=== PATIENT | female | born 1965 | race Caucasian/White ===

== ENCOUNTER → 2017-10-19 | Outpatient (CLI) | payer OTHER | LOC: FIMAGING 11:21 | PROVIDERS: ATTEND Internal Medicine | DX: Z12.31 Encounter for screening mammogram for malignant neoplasm of breast (principal) ==

== ENCOUNTER 2018-09-08 09:59 | Emergency (ER) | payer OTHER ==
[2018-09-08 10:42] LABS: PLATELET COUNT 339 10^3/uL (150-400)
--- NOTE | 2018-09-08 11:09 | EDPHY ---
H & P Stated Complaint: CP/tightness Time Seen by Provider: 09/08/18 10:38 HPI/ROS: CHIEF COMPLAINT: Rapid heart rate HISTORY OF PRESENT ILLNESS: 53-year-old female presents with tachycardia. Onset of intermittent episodes of tachycardia 2 nights ago. These episodes awake her from sleep and consist of isolated tachycardia without associated symptoms. The symptoms usually last a few minutes and then completely resolve. This morning she had a brief episode of tachycardia, which prompted her visit. She also has a few month history of intermittent vague and mild chest discomfort extending from her epigastrium up into her chest. The pain tends to run up and down her chest and is not associated with exertion. No assoc sx and no known association with dietary intake. Cardiac risk factors negative. Nonsmoker; no family history; no hypertension, diabetes or hypercholesterolemia. REVIEW OF SYSTEMS: complete 10 point ROS reviewed and is negative except for the noted elements in the HPI - Personal History LMP (Females 10-55): Irregular Current Tetanus/Diphtheria Vaccine: Yes - Medical/Surgical History Hx Asthma: No Hx Chronic Respiratory Disease: No Hx Diabetes: No Hx Cardiac Disease: No Hx Renal Disease: No Hx Cirrhosis: No Hx Alcoholism: No Other PMH: Denies - Family History Significant Family History: Other (VTE in father and brother) - Social History Smoking Status: Never smoked Alcohol Use: Occasionally Drug Use: None Additional Social History: - Physical Exam Exam: General Appearance: Alert, pleasant Eyes: Pupils equal and round, no conjunctival pallor or injection ENT, Mouth: Mucous membranes moist Neck: Normal inspection Respiratory: Lungs are clear to auscultation Cardiovascular: Regular rate and rhythm, no murmur Gastrointestinal: Abdomen is soft and nontender Neurological: A&O, nonfocal, normal gait Skin: Warm and dry, no rash Extremities: Nontender, no pedal edema Psychiatric: Mood and affect normal Constitutional: Initial Vital Signs Temperature (C) 36.6 C 09/08/18 10:10 Heart Rate 75 09/08/18 10:10 Respiratory Rate 18 09/08/18 10:10 Blood Pressure 145/80 H 09/08/18 10:10 O2 Sat (%) 100 09/08/18 10:10 O2 Delivery Mode Room Air Allergies/Adverse Reactions: Penicillins Allergy (Verified 09/08/18 10:12) Home Medications: Medication Instructions Recorded NK [No Known Home Meds] 09/08/18 Medical Decision Making - Diagnostics EKG Interpretation: EKG interpreted by me reveals normal sinus rhythm, rate 69, no ST or T segment changes. Interpretation: Normal EKG Imaging Results: Imaging Impressions Chest X-Ray 09/08/18 10:20 Impression: No acute pulmonary disease. Chest x-ray: NAD Imaging: I viewed and interpreted images myself ED Course/Re-evaluation: This pt presents with palpitations. stat EKG reveals no evidence of ischemia or dysrhythmia. youth nutritional monitor: NSR throughout ED obs. Labs unremarkable, TSH pending. Will need outpt Holter for further eval of palpitations. Chest discomfort most c/w GERD, doubt ACS given atypical sx and no RF. No indication for further ED eval. Safe/stable for d/c home. Will f/u PCP, consider cardiac monitoring as outpt. Warning signs discussed. Differential Diagnosis: includes though not limited to SVT, AFib, ventricular dysrhythmia, thyrotoxicosis, ACS - Data Points Laboratory Results: Laboratory Results 09/08/18 10:25 09/08/18 10:25 09/08/18 09/08/18 09/08/18 10:30 10:28 10:25 WBC RBC Hgb Hct MCV MCH MCHC RDW Plt Count MPV Neut % (Auto) Lymph % (Auto) Hyde % (Auto) Eos % (Auto) Baso % (Auto) Nucleat RBC Rel Count Absolute Neuts (auto) Absolute Lymphs (auto) Absolute Monos (auto) Absolute Eos (auto) Absolute Basos (auto) Absolute Nucleated RBC Immature Gran % Immature Gran # D-Dimer < 0.27 ug/mLFEU ug/mLFEU (0.00-0.50) Sodium Potassium Chloride Carbon Dioxide Anion Gap BUN Creatinine Estimated GFR Glucose Calcium POC Troponin I 0.00 ng/mL ng/mL (0.00-0.08) NT-Pro-B Natriuret Pep TSH 2.750 uIU/mL uIU/mL (0.465-4.680) 09/08/18 09/08/18 10:25 10:25 WBC 6.03 10^3/uL 10^3/uL (3.80-9.50) RBC 4.65 10^6/uL 10^6/uL (4.18-5.33) Hgb 14.0 g/dL g/dL (12.6-16.3) Hct 42.6 % % (38.0-47.0) MCV 91.6 fL fL (81.5-99.8) MCH 30.1 pg pg (27.9-34.1) MCHC 32.9 g/dL g/dL (32.4-36.7) RDW 13.4 % % (11.5-15.2) Plt Count 339 10^3/uL 10^3/uL (150-400) MPV 9.2 fL fL (8.7-11.7) Neut % (Auto) 59.6 % % (39.3-74.2) Lymph % (Auto) 30.0 % % (15.0-45.0) Hyde % (Auto) 9.0 % % (4.5-13.0) Eos % (Auto) 0.7 % % (0.6-7.6) Baso % (Auto) 0.5 % % (0.3-1.7) Nucleat RBC Rel Count 0.0 % % (0.0-0.2) Absolute Neuts (auto) 3.60 10^3/uL 10^3/uL (1.70-6.50) Absolute Lymphs (auto) 1.81 10^3/uL 10^3/uL (1.00-3.00) Absolute Monos (auto) 0.54 10^3/uL 10^3/uL (0.30-0.80) Absolute Eos (auto) 0.04 10^3/uL 10^3/uL (0.03-0.40) Absolute Basos (auto) 0.03 10^3/uL 10^3/uL (0.02-0.10) Absolute Nucleated RBC 0.00 10^3/uL 10^3/uL (0-0.01) Immature Gran % 0.2 % % (0.0-1.1) Immature Gran # 0.01 10^3/uL 10^3/uL (0.00-0.10) D-Dimer Sodium 137 mEq/L mEq/L (135-145) Potassium 3.8 mEq/L mEq/L (3.3-5.0) Chloride 103 mEq/L mEq/L (97-110) Carbon Dioxide 26 mEq/l mEq/l (22-31) Anion Gap 8 mEq/L mEq/L (6-14) BUN 16 mg/dL mg/dL (7-23) Creatinine 0.9 mg/dL mg/dL (0.6-1.0) Estimated GFR > 60 Glucose 97 mg/dL mg/dL (70-100) Calcium 9.6 mg/dL mg/dL (8.5-10.4) POC Troponin I NT-Pro-B Natriuret Pep 104 pg/mL pg/mL (0-125) TSH Point of Care Test Results: Chemistry 09/08/18 10:28 POC Troponin I 0.00 ng/mL ng/mL (0.00-0.08) Departure - Departure Disposition: Home, Routine, Self-Care Clinical Impression: Palpitations Condition: Good Instructions: Heart Palpitations (ED) Additional Instructions: Return for worsening symptoms or any concerns. Referrals: JENNIE SANTOS [Primary Care Provider] - 2-3 days without fail (Call to make an appointment.)
[2018-09-08 11:22] VITALS: BP 125/82
--- NOTE | 2018-09-08 15:08 | CPEKG ---
Test Reason : OPEN Blood Pressure : / mmHG Vent. Rate : 069 BPM Atrial Rate : 071 BPM P-R Int : 155 ms QRS Dur : 081 ms QT Int : 414 ms P-R-T Axes : 086 059 055 degrees QTc Int : 444 ms Sinus rhythm Confirmed by Yvette Chapa ([id number]) on 09/08/2018 3:08:01 PM Referred By: Confirmed By:Yvette Chapa
== END 2018-09-08 11:23 | disposition home or self-care (01) ==
DX: R00.2 Palpitations (principal)
CPT/HCPCS: 84484-PO

== ENCOUNTER → 2018-11-09 | Outpatient (CLI) | payer OTHER | LOC: BRMIMAGING 15:03 | PROVIDERS: ATTEND Internal Medicine | DX: Z12.31 Encounter for screening mammogram for malignant neoplasm of breast (principal) ==

== ENCOUNTER → 2018-11-23 | Outpatient (CLI) | payer OTHER | LOC: FIMAGING 12:01 | PROVIDERS: ATTEND Internal Medicine | DX: R92.8 Other abnormal and inconclusive findings on diagnostic imaging of breast (principal) ==